=== PATIENT | female | born 1935 | race Asian ===

== ENCOUNTER 2022-03-01 14:14 | Inpatient (IN) | payer OTHER ==
[2022-03-01 15:34] LABS: BASO % 0.2 % (0-2.0); HEMOGLOBIN 10.1 GM/dL (10.7-15.3); LYMPH % 5.7 % (8-40); MCH 33.3 pg (25.7-33.7); MCHC 31.7 g/dl (32.0-36.0); MEAN PLT VOLUME 7.8 fl (7.5-11.1); MONO % 4.2 % (3.8-10.2); NEUT % 89.9 % (42.8-82.8); PLATELET COUNT 315 10^3/uL (134-434); RBC 3.04 M/mm3 (3.60-5.2); RDW 16.1 % (11.6-15.6); WHITE BLOOD COUNT 13.3 K/mm3 (4.0-10.0)
[2022-03-01 15:41] LABS: INR 1.28 (0.83-1.09); PROTHROMBIN TIME (PATIENT) 14.7 SEC (9.7-13.0)
[2022-03-01 15:44] LABS: ACTIVATED PTT 29.4 SECONDS (25.2-36.5)
[2022-03-01 15:59] LABS: CHLORIDE 86 mmol/L (98-107); SODIUM 122 mmol/L (136-145)
[2022-03-01 16:01] LABS: CALCIUM 8.7 mg/dL (8.5-10.1)
[2022-03-01 16:02] LABS: ALBUMIN 3.1 g/dl (3.4-5.0); BLOOD UREA NITROGEN 79.4 mg/dL (7-18); CO2 15 mmol/L (21-32)
[2022-03-01 16:05] LABS: CREATININE 4.2 mg/dL (0.55-1.3); SGOT/AST 232 U/L (15-37); SGPT/ALT 159 U/L (13-61)
[2022-03-01 16:06] LABS: BILIRUBIN,TOTAL 0.5 mg/dL (0.2-1); TOT PROT 7.6 g/dl (6.4-8.2)
[2022-03-01 16:08] LABS: ALK PHOS 107 U/L (45-117)
[2022-03-01 16:14] LABS: ANISOCYTOSIS 2+; MACROCYTOSIS 1+
[2022-03-01 16:22] LABS: VENOUS BASE EXCESS -11.9 mmol/L (-2-2); VENOUS O2 SATURATION 57.6 % (70-80); VENOUS PCO2 30.8 mmHg (38-52); VENOUS PH 7.268 (7.310-7.410)
[2022-03-01 16:34] LABS: INR 1.27 (0.83-1.09); PROTHROMBIN TIME (PATIENT) 14.6 SEC (9.7-13.0)
[2022-03-01 16:36] LABS: ACTIVATED PTT 29.1 SECONDS (25.2-36.5)
[2022-03-01 16:36] LABS: ANION GAP 22 MMOL/L (8-16); GLUCOSE,RANDOM 970 mg/dL (74-106); N-TERMINAL BNP 59160.3 pg/ml (5-450)
[2022-03-01] MEDS ORDERED: INSULIN REGULAR 100 UNITS in SODIUM CHLORIDE 99 ML IVPB SCH ×2 (16:45→17:30)
[2022-03-01] MEDS ORDERED: VANCOMYCIN 1 GM in D5W (PRE-DOCKED) 1,000 MG/250 ML IVPB ONE (16:49)
[2022-03-01] MEDS ORDERED: CEFEPIME HCL/D5W 2 GM/50 ML BAG IVPB ONE (16:50)
[2022-03-01] MEDS ORDERED: CALCIUM GLUCONATE 10% - 1,000 MG/10 ML VIAL IVPUSH ONE (16:51)
[2022-03-01] MEDS ORDERED: ACETAMINOPHEN INJECTION 100 ML IVPB ONE (16:58)
[2022-03-01] MEDS ORDERED: THIAMINE HCL 200 MG/2 ML VIAL IVPB ONE (17:08)
[2022-03-01] MEDS ORDERED: SODIUM CHLORIDE 0.9% 500 ML INFUS.BAG IV ONE (17:21)
[2022-03-01] MEDS ORDERED: ACETAMINOPHEN 1000 MG/100 ML BAG IVPB ONE (17:23)
[2022-03-01] MEDS ORDERED: VANCOMYCIN 1 GRAM (PRE-DOCKED) 1,000 MG/250 ML BAG IVPB ONE (17:24)
[2022-03-01] MEDS ORDERED: CALCIUM GLUCONATE 10% - 1,000 MG/10 ML VIAL ONE (17:24)
[2022-03-01] MEDS ORDERED: THIAMINE HCL 200 MG/2 ML VIAL ONE (17:24)
[2022-03-01] MEDS ORDERED: CEFEPIME 2 GM/100 ML BAG IVPB ONE (17:25)
[2022-03-01] MEDS ORDERED: SODIUM CHLORIDE 1,000 ML IV SCH (18:00)
[2022-03-01 18:20] LABS: EPI CELLS >36 /uL (0-25.1); HYALINE CASTS 5 /uL (0-3.1); URINE APPEARANCE CLOUDY; URINE BACTERIA 23 /uL (0-1359); URINE BILIRUBIN NEGATIVE (NEGATIVE); URINE COLOR YELLOW; URINE GLUCOSE (UA) 3+ (NEGATIVE); URINE KETONE NEGATIVE (NEGATIVE); URINE LEUK ESTERASE NEGATIVE (NEGATIVE); URINE NITRITE NEGATIVE (NEGATIVE); URINE PROTEIN 3+ (NEGATIVE); URINE RBC 11 /uL (0-23.9); URINE UROBILINOGEN 0.2 mg/dL (0.2-1.0)
[2022-03-01 19:19] LABS: URINE WBC 184 /uL (0-25.8)
[2022-03-01] MEDS ORDERED: LORazepam 2 MG/ML SDV VIAL IVPUSH ONE (19:37)
[2022-03-01 19:45] LABS: CHLORIDE 91 mmol/L (98-107); SODIUM 126 mmol/L (136-145)
[2022-03-01 19:47] LABS: ALBUMIN 2.9 g/dl (3.4-5.0); ANION GAP 17 MMOL/L (8-16); BLOOD UREA NITROGEN 77.7 mg/dL (7-18); CALCIUM 9.8 mg/dL (8.5-10.1); CO2 17 mmol/L (21-32)
[2022-03-01 19:50] LABS: PHOSPHOROUS 7.3 mg/dL (2.5-4.9); SGOT/AST 287 U/L (15-37); SGPT/ALT 216 U/L (13-61)
[2022-03-01 19:51] LABS: CREATININE 3.8 mg/dL (0.55-1.3)
[2022-03-01 19:52] LABS: BILIRUBIN,TOTAL 0.4 mg/dL (0.2-1); TOT PROT 7.1 g/dl (6.4-8.2)
[2022-03-01 19:53] LABS: ALK PHOS 102 U/L (45-117)
[2022-03-01 19:59] LABS: GLUCOSE,RANDOM 809 mg/dL (74-106); LACTIC ACID 3.9 mmol/L (0.4-2.0)
[2022-03-01] MEDS ORDERED: PNEUMOC 20-VAL CONJ-DIP CRM/PF 0.5 ML SYRINGE IM ONE (20:55)
[2022-03-01] MEDS: CHLORHEXIDINE GLUCONATE 4% CLEANSER FOR DECOLONIZATION TP SCH (21:43)
[2022-03-01] MEDS: HEPARIN NA (PORCINE) 5,000 UNITS/ML 1ML VIAL SQ SCH (21:43)
[2022-03-01] MEDS: MUPIROCIN 2% TOPICAL OINTMENT FOR DECOLONIZATION NS SCH (21:43)
[2022-03-01 22:13] LABS: CHLORIDE 94 mmol/L (98-107); SODIUM 127 mmol/L (136-145)
[2022-03-01 22:15] LABS: CALCIUM 9.5 mg/dL (8.5-10.1)
[2022-03-01 22:16] LABS: ANION GAP 15 MMOL/L (8-16); BLOOD UREA NITROGEN 79.3 mg/dL (7-18); CO2 18 mmol/L (21-32); MAGNESIUM 2.9 mg/dL (1.8-2.4)
[2022-03-01 22:19] LABS: CREATININE 3.8 mg/dL (0.55-1.3); PHOSPHOROUS 6.9 mg/dL (2.5-4.9); SGOT/AST 313 U/L (15-37); SGPT/ALT 245 U/L (13-61)
[2022-03-01 22:20] LABS: BILIRUBIN,TOTAL 0.4 mg/dL (0.2-1); TOT PROT 7.1 g/dl (6.4-8.2)
[2022-03-01 22:21] LABS: ALK PHOS 102 U/L (45-117)
[2022-03-01 22:35] LABS: GLUCOSE,RANDOM 634 mg/dL (74-106)
[2022-03-02 00:55] LABS: MAGNESIUM 2.8 mg/dL (1.8-2.4)
[2022-03-02] MEDS: DEXTROSE 5%-NORMAL SALINE 1,000 ML IV SCH ×2 (00:55→11:16)
[2022-03-02 00:59] LABS: PHOSPHOROUS 5.7 mg/dL (2.5-4.9)
[2022-03-02 01:00] LABS: LACTIC ACID 2.8 mmol/L (0.4-2.0)
[2022-03-02 01:51] LABS: CALCIUM 9.3 mg/dL (8.5-10.1)
[2022-03-02 01:52] LABS: ALBUMIN 2.8 g/dl (3.4-5.0); BLOOD UREA NITROGEN 77.4 mg/dL (7-18)
[2022-03-02 01:55] LABS: CREATININE 3.5 mg/dL (0.55-1.3)
[2022-03-02 01:56] LABS: TOT PROT 6.5 g/dl (6.4-8.2)
[2022-03-02 02:00] LABS: BILIRUBIN,TOTAL 0.8 mg/dL (0.2-1)
[2022-03-02] MEDS: INSULIN (LEVEMIR) 100 UNITS/ML UNITS SQ SCH ×3 (02:06→21:25)
[2022-03-02] MEDS: HEPARIN NA (PORCINE) 5,000 UNITS/ML 1ML VIAL SQ SCH ×3 (06:09→21:25)
[2022-03-02] MEDS: INSULIN SLIDING SCALE (NOVOLOG) 1 VIAL SQ SCH ×4 (06:09→21:27)
[2022-03-02 06:47] LABS: HEMATOCRIT 28.8 % (32.4-45.2); HEMOGLOBIN 9.7 GM/dL (10.7-15.3); MCH 33.6 pg (25.7-33.7); MCHC 33.5 g/dl (32.0-36.0); MEAN CELL VOLUME 100.2 fl (80-96); MEAN PLT VOLUME 7.5 fl (7.5-11.1); PLATELET COUNT 295 10^3/uL (134-434); RBC 2.87 M/mm3 (3.60-5.2); RDW 15.9 % (11.6-15.6); WHITE BLOOD COUNT 18.9 K/mm3 (4.0-10.0)
[2022-03-02 07:08] LABS: ALBUMIN 2.5 g/dl (3.4-5.0); BLOOD UREA NITROGEN 72.2 mg/dL (7-18); CALCIUM 8.7 mg/dL (8.5-10.1); MAGNESIUM 2.8 mg/dL (1.8-2.4)
[2022-03-02 07:11] LABS: CREATININE 3.1 mg/dL (0.55-1.3); PHOSPHOROUS 5.2 mg/dL (2.5-4.9)
[2022-03-02 07:13] LABS: BILIRUBIN,TOTAL 0.6 mg/dL (0.2-1); TOT PROT 6.2 g/dl (6.4-8.2)
[2022-03-02] MEDS ORDERED: DEXTROSE 5%-WATER - 50 ML IVPB ONE (09:51)
[2022-03-02] MEDS ORDERED: CEFEPIME HCL 1 GM VIAL (RESTRICTED TO ID) ONE (09:51)
[2022-03-02] MEDS: MUPIROCIN 2% TOPICAL OINTMENT FOR DECOLONIZATION NS SCH ×2 (09:55→21:25)
[2022-03-02] MEDS ORDERED: CEFEPIME HCL/D5W 1 GM/50 ML BAG IVPB SCH (10:00)
[2022-03-02] MEDS ORDERED: CEFEPIME 1 GM in DEXTROSE 5%-WATER - 50 ML IVPB ONE (10:00)
[2022-03-02] MEDS ORDERED: SODIUM CHLORIDE 1,000 ML IV SCH (11:15)
[2022-03-02] MEDS ORDERED: ACETAMINOPHEN 1000 MG/100 ML BAG IVPB ONE (16:14)
[2022-03-02] MEDS: SODIUM CHLORIDE 0.45% 1,000 ML IV SCH (17:04)
[2022-03-02] MEDS: LIDOCAINE 5% TOPICAL PATCH TP SCH (17:04)
[2022-03-02] MEDS ORDERED: morphine CARPU-JECT 2 MG/1 ML DISP.SYRIN IVPUSH ONE (20:18)
[2022-03-02 20:50] LABS: CALCIUM 8.3 mg/dL (8.5-10.1)
[2022-03-02 20:51] LABS: BLOOD UREA NITROGEN 67.2 mg/dL (7-18)
[2022-03-02 20:54] LABS: CREATININE 2.9 mg/dL (0.55-1.3)
[2022-03-02] MEDS ORDERED: morphine CARPU-JECT 4 MG/1 ML DISP.SYRIN IVPUSH ONE (21:11)
[2022-03-02] MEDS: CHLORHEXIDINE GLUCONATE 4% CLEANSER FOR DECOLONIZATION TP SCH (21:25)
[2022-03-02] MEDS ORDERED: LIDOCAINE PATCH REMOVAL MC SCH (22:00)
[2022-03-03] MEDS: HEPARIN NA (PORCINE) 5,000 UNITS/ML 1ML VIAL SQ SCH ×2 (06:06→22:37)
[2022-03-03] MEDS: INSULIN SLIDING SCALE (NOVOLOG) 1 VIAL SQ SCH ×3 (06:37→22:15)
[2022-03-03] MEDS ORDERED: LORazepam 2 MG/ML SDV VIAL IVPUSH ONE (09:15)
[2022-03-03 09:30] LABS: ARTERIAL BLD GAS O2 SATURATION 98.2 % (95-98); ARTERIAL BLOOD GAS BASE EXCESS -9.7 mmol/L (-2-2); ARTERIAL BLOOD GAS PO2 119.5 mmHg (80-100); ARTERIAL BLOOD GAS pH 7.331 (7.350-7.450)
[2022-03-03 09:33] LABS: ALLENS TEST POSITIVE; VENT MODE S/T; VENT RATE 12
[2022-03-03] MEDS ORDERED: MUPIROCIN 2% TOPICAL OINTMENT FOR DECOLONIZATION NS SCH (10:00)
[2022-03-03] MEDS ORDERED: ASPIRIN 81 MG CHEWABLE TABLETS PO SCH (10:00)
[2022-03-03] MEDS ORDERED: CEFEPIME HCL/D5W 1 GM/50 ML BAG IVPB SCH (10:00)
[2022-03-03] MEDS ORDERED: INSULIN (LEVEMIR) 100 UNITS/ML UNITS SQ SCH (10:00)
[2022-03-03] MEDS ORDERED: methylPREDNISolone NA SUCC 125 MG/2 ML VIAL IVPUSH ONE (10:00)
[2022-03-03 10:50] LABS: HEMATOCRIT 31.3 % (32.4-45.2); HEMOGLOBIN 10.2 GM/dL (10.7-15.3); MCH 33.1 pg (25.7-33.7); MCHC 32.6 g/dl (32.0-36.0); MEAN CELL VOLUME 101.5 fl (80-96); PLATELET COUNT 333 10^3/uL (134-434); RBC 3.08 M/mm3 (3.60-5.2); RDW 16.2 % (11.6-15.6); WHITE BLOOD COUNT 17.6 K/mm3 (4.0-10.0)
[2022-03-03 10:51] LABS: MEAN PLT VOLUME 7.7 fl (7.5-11.1)
[2022-03-03] MEDS ORDERED: INSULIN SLIDING SCALE (NOVOLOG) 1 VIAL SQ SCH (11:00)
[2022-03-03 11:08] LABS: CALCIUM 8.1 mg/dL (8.5-10.1); MAGNESIUM 2.5 mg/dL (1.8-2.4)
[2022-03-03 11:09] LABS: ALBUMIN 2.8 g/dl (3.4-5.0); BLOOD UREA NITROGEN 63.9 mg/dL (7-18)
[2022-03-03 11:12] LABS: BILIRUBIN,TOTAL 0.4 mg/dL (0.2-1); CREATININE 2.9 mg/dL (0.55-1.3)
[2022-03-03 11:13] LABS: TOT PROT 6.9 g/dl (6.4-8.2)
[2022-03-03] MEDS: SODIUM CHLORIDE 0.45% 1,000 ML IV SCH (11:46)
[2022-03-03] MEDS: LIDOCAINE 5% TOPICAL PATCH TP SCH (12:02)
[2022-03-03] MEDS ORDERED: ALBUTEROL SO4 2.5/IPRATROPIUM 0.5 INH SOL 3 ML VIAL.NEB. NEB ONE (13:00)
[2022-03-03 13:27] LABS: ARTERIAL BLD GAS O2 SATURATION 95.8 % (95-98); ARTERIAL BLOOD GAS BASE EXCESS -14.6 mmol/L (-2-2); ARTERIAL BLOOD GAS PO2 92.6 mmHg (80-100); ARTERIAL BLOOD GAS pH 7.229 (7.350-7.450)
[2022-03-03 13:29] LABS: ALLENS TEST POSITIVE
[2022-03-03] MEDS ORDERED: HEPARIN NA (PORCINE) 5,000 UNITS/ML 1ML VIAL SQ SCH (14:00)
[2022-03-03] MEDS ORDERED: SODIUM BICARBONATE 8.4% 50 MEQ/50 ML VIAL IV ONE (14:34)
[2022-03-03] MEDS ORDERED: SODIUM CHLORIDE 0.45% 1,000 ML IV SCH (14:45)
[2022-03-03] MEDS ORDERED: SODIUM BICARBONATE 8.4% 50 MEQ/50 ML DISP.SYRIN IV ONE (15:00)
[2022-03-03] MEDS: DEXMEDETOMIDINE IN 0.9 % NACL 400 MCG/100 ML VIAL IVPB SCH (15:50)
[2022-03-03] MEDS ORDERED: SODIUM CHLORIDE 0.45% 1,000 ML with SODIUM BICARBONATE 8.4% - 150 MEQ IV SCH (16:00)
[2022-03-03] MEDS ORDERED: SODIUM BICARBONATE 8.4% - 75 MEQ in SODIUM CHLORIDE 0.45% 1,000 ML IV ONE (16:08)
[2022-03-03 16:40] LABS: LACTIC ACID 7.4 mmol/L (0.4-2.0)
[2022-03-03] MEDS ORDERED: dilTIAZem HCL 50 MG/10 ML - 10 ML VIAL IVPUSH ONE (16:53)
[2022-03-03] MEDS ORDERED: dilTIAZem HCL 125 MG/25 ML - 25 ML VIAL ONE (16:56)
[2022-03-03] MEDS ORDERED: SODIUM BICARBONATE 8.4% 50 MEQ/50 ML DISP.SYRIN IVPUSH ONE (17:13)
[2022-03-03] MEDS ORDERED: SODIUM CHLORIDE 0.45% 1,000 ML IV ONE (17:14)
[2022-03-03] MEDS ORDERED: FUROSEMIDE 40 MG/4 ML INJECTABLE VIAL IVPUSH ONE ×2 (18:36→21:53)
[2022-03-03] MEDS ORDERED: CHLORHEXIDINE GLUCONATE 4% CLEANSER FOR DECOLONIZATION TP SCH (22:00)
[2022-03-03] MEDS: INSULIN (LEVEMIR) 100 UNITS/ML UNITS SQ SCH (22:15)
[2022-03-03] MEDS: MUPIROCIN 2% TOPICAL OINTMENT FOR DECOLONIZATION NS SCH (22:36)
[2022-03-03] MEDS: dilTIAZem HCL 50 MG/10 ML - 10 ML VIAL IVPUSH PRN (22:37)
[2022-03-03] MEDS: LIDOCAINE PATCH REMOVAL MC SCH (22:37)
[2022-03-03] MEDS: CHLORHEXIDINE GLUCONATE 4% CLEANSER FOR DECOLONIZATION TP SCH (22:37)
[2022-03-04 07:04] LABS: HEMATOCRIT 30.5 % (32.4-45.2); HEMOGLOBIN 10.3 GM/dL (10.7-15.3); MCH 33.6 pg (25.7-33.7); MCHC 33.7 g/dl (32.0-36.0); MEAN CELL VOLUME 99.5 fl (80-96); MEAN PLT VOLUME 7.7 fl (7.5-11.1); PLATELET COUNT 270 10^3/uL (134-434); RBC 3.07 M/mm3 (3.60-5.2); RDW 16.1 % (11.6-15.6); WHITE BLOOD COUNT 15.3 K/mm3 (4.0-10.0)
[2022-03-04] MEDS: HEPARIN NA (PORCINE) 5,000 UNITS/ML 1ML VIAL SQ SCH ×3 (07:12→21:58)
[2022-03-04] MEDS: INSULIN SLIDING SCALE (NOVOLOG) 1 VIAL SQ SCH ×4 (07:13→21:59)
[2022-03-04] MEDS: INSULIN (LEVEMIR) 100 UNITS/ML UNITS SQ SCH ×2 (07:13→21:58)
[2022-03-04 07:24] LABS: ALBUMIN 2.5 g/dl (3.4-5.0); BLOOD UREA NITROGEN 73.2 mg/dL (7-18); CALCIUM 7.6 mg/dL (8.5-10.1); MAGNESIUM 2.5 mg/dL (1.8-2.4)
[2022-03-04 07:27] LABS: CREATININE 2.7 mg/dL (0.55-1.3); PHOSPHOROUS 5.1 mg/dL (2.5-4.9)
[2022-03-04 07:29] LABS: BILIRUBIN,TOTAL 0.4 mg/dL (0.2-1); TOT PROT 6.3 g/dl (6.4-8.2)
[2022-03-04 10:24] LABS: ANISOCYTOSIS 0; HELMET CELLS 0; HOWELL-JOLLY BODIES 0; MACROCYTOSIS 0; OVALOCYTE 0; ROULEAU 0; SICKELED CELLS 0; TARGET CELLS 0; TEAR DROP CELLS 0; TOXIC GRANULATION 0
[2022-03-04] MEDS: DEXTROSE 5%-0.45% SALINE 1,000 ML IV SCH (10:30)
[2022-03-04] MEDS: LIDOCAINE 5% TOPICAL PATCH TP SCH (10:33)
[2022-03-04] MEDS: MUPIROCIN 2% TOPICAL OINTMENT FOR DECOLONIZATION NS SCH ×2 (10:33→21:57)
[2022-03-04] MEDS: dilTIAZem HCL 50 MG/10 ML - 10 ML VIAL IVPUSH PRN ×3 (10:37→21:57)
[2022-03-04] MEDS: ASPIRIN 81 MG CHEWABLE TABLETS PO SCH (11:48)
[2022-03-04] MEDS: DEXMEDETOMIDINE IN 0.9 % NACL 400 MCG/100 ML VIAL IVPB SCH ×2 (13:11→17:02)
[2022-03-04] MEDS: CHLORHEXIDINE GLUCONATE 4% CLEANSER FOR DECOLONIZATION TP SCH (21:58)
[2022-03-04] MEDS: LIDOCAINE PATCH REMOVAL MC SCH (21:58)
[2022-03-05] MEDS: HEPARIN NA (PORCINE) 5,000 UNITS/ML 1ML VIAL SQ SCH ×3 (06:14→22:32)
[2022-03-05] MEDS: dilTIAZem HCL 50 MG/10 ML - 10 ML VIAL IVPUSH PRN ×2 (06:17→10:17)
[2022-03-05] MEDS: INSULIN SLIDING SCALE (NOVOLOG) 1 VIAL SQ SCH ×4 (07:04→22:33)
[2022-03-05] MEDS: INSULIN (LEVEMIR) 100 UNITS/ML UNITS SQ SCH ×2 (07:04→22:33)
[2022-03-05 07:11] LABS: HEMATOCRIT 32.3 % (32.4-45.2); HEMOGLOBIN 10.3 GM/dL (10.7-15.3); MCH 32.9 pg (25.7-33.7); MCHC 31.9 g/dl (32.0-36.0); MEAN CELL VOLUME 103.1 fl (80-96); MEAN PLT VOLUME 8.2 fl (7.5-11.1); PLATELET COUNT 278 10^3/uL (134-434); RBC 3.14 M/mm3 (3.60-5.2); RDW 16.5 % (11.6-15.6); WHITE BLOOD COUNT 16.1 K/mm3 (4.0-10.0)
[2022-03-05 07:55] LABS: ALBUMIN 2.4 g/dl (3.4-5.0); BILIRUBIN,TOTAL 0.4 mg/dL (0.2-1); BLOOD UREA NITROGEN 75.2 mg/dL (7-18); CALCIUM 7.8 mg/dL (8.5-10.1); CREATININE 2.6 mg/dL (0.55-1.3); PHOSPHOROUS 5.6 mg/dL (2.5-4.9); TOT PROT 6.2 g/dl (6.4-8.2)
[2022-03-05 10:10] LABS: ANISOCYTOSIS 2+; MACROCYTOSIS 2+
[2022-03-05] MEDS: ASPIRIN 81 MG CHEWABLE TABLETS PO SCH (10:13)
[2022-03-05] MEDS: SODIUM CHLORIDE 0.45% 1,000 ML IV SCH (10:15)
[2022-03-05] MEDS: LIDOCAINE 5% TOPICAL PATCH TP SCH (10:19)
[2022-03-05] MEDS: MUPIROCIN 2% TOPICAL OINTMENT FOR DECOLONIZATION NS SCH ×2 (10:19→22:32)
[2022-03-05 10:34] LABS: NEUT % 14.5 % (42.8-82.8)
[2022-03-05] MEDS ORDERED: PIPERACILLIN/TAZOBACTAM 2.25 GM VIAL IVPB ONE ×3 (14:08→20:34)
[2022-03-05] MEDS ORDERED: DEXTROSE 5%-WATER - 50 ML IVPB ONE ×3 (14:08→20:34)
[2022-03-05] MEDS: PIPERACILLIN/TAZOB 2.25 GM 2.25 GM in DEXTROSE 5%-WATER - 50 ML IVPB SCH ×2 (14:20→17:21)
[2022-03-05] MEDS: ARTIFICIAL TEARS (POLYVINYL ALCOHOL) OPTH DROPS OU SCH (22:32)
[2022-03-05] MEDS: CHLORHEXIDINE GLUCONATE 4% CLEANSER FOR DECOLONIZATION TP SCH (22:32)
[2022-03-05] MEDS: LIDOCAINE PATCH REMOVAL MC SCH (22:33)
[2022-03-06] MEDS: PIPERACILLIN/TAZOB 2.25 GM 2.25 GM in DEXTROSE 5%-WATER - 50 ML IVPB SCH ×3 (03:29→17:34)
[2022-03-06] MEDS: DEXMEDETOMIDINE IN 0.9 % NACL 400 MCG/100 ML VIAL IVPB SCH ×2 (03:29→10:33)
[2022-03-06] MEDS: ARTIFICIAL TEARS (POLYVINYL ALCOHOL) OPTH DROPS OU SCH ×3 (06:22→21:18)
[2022-03-06] MEDS: INSULIN (LEVEMIR) 100 UNITS/ML UNITS SQ SCH ×2 (06:22→21:24)
[2022-03-06] MEDS: HEPARIN NA (PORCINE) 5,000 UNITS/ML 1ML VIAL SQ SCH ×3 (06:22→21:17)
[2022-03-06] MEDS: INSULIN SLIDING SCALE (NOVOLOG) 1 VIAL SQ SCH ×4 (06:23→21:24)
[2022-03-06] MEDS ORDERED: dilTIAZem HCL 25 MG/5 ML - 5 ML VIAL ONE (06:50)
[2022-03-06] MEDS: dilTIAZem HCL 50 MG/10 ML - 10 ML VIAL IVPUSH PRN (07:12)
[2022-03-06] MEDS ORDERED: PIPERACILLIN/TAZOBACTAM 2.25 GM VIAL IVPB ONE ×2 (07:56→17:05)
[2022-03-06] MEDS ORDERED: DEXTROSE 5%-WATER - 50 ML IVPB ONE ×2 (07:56→17:05)
[2022-03-06] MEDS: ASPIRIN 81 MG CHEWABLE TABLETS PO SCH (09:01)
[2022-03-06] MEDS: LIDOCAINE 5% TOPICAL PATCH TP SCH (09:01)
[2022-03-06] MEDS: MUPIROCIN 2% TOPICAL OINTMENT FOR DECOLONIZATION NS SCH ×2 (09:02→21:18)
[2022-03-06 10:33] LABS: HEMATOCRIT 33.9 % (32.4-45.2); HEMOGLOBIN 10.9 GM/dL (10.7-15.3); MCHC 32.1 g/dl (32.0-36.0); MEAN PLT VOLUME 7.6 fl (7.5-11.1); PLATELET COUNT 271 10^3/uL (134-434); RBC 3.29 M/mm3 (3.60-5.2); RDW 16.5 % (11.6-15.6); WHITE BLOOD COUNT 13.5 K/mm3 (4.0-10.0)
[2022-03-06] MEDS: SODIUM CHLORIDE 0.45% 1,000 ML IV SCH (10:33)
[2022-03-06 11:13] LABS: LACTIC ACID 2.1 mmol/L (0.4-2.0)
[2022-03-06] MEDS ORDERED: morphine CARPU-JECT 4 MG/1 ML DISP.SYRIN IVPUSH ONE (11:17)
[2022-03-06 13:02] LABS: CALCIUM 7.8 mg/dL (8.5-10.1)
[2022-03-06 13:04] LABS: BLOOD UREA NITROGEN 69.9 mg/dL (7-18); MAGNESIUM 2.8 mg/dL (1.8-2.4)
[2022-03-06 13:07] LABS: CREATININE 2.5 mg/dL (0.55-1.3); PHOSPHOROUS 3.9 mg/dL (2.5-4.9)
[2022-03-06] MEDS: KCL 10 MEQ IVPB 10 MEQ/100 ML INFUS.BAG IVPB SCH ×2 (15:20→16:22)
[2022-03-06 16:30] VITALS: BMI 20.5
[2022-03-06] MEDS ORDERED: LORazepam 2 MG/ML SDV VIAL IVPUSH ONE (17:35)
[2022-03-06 19:41] LABS: ARTERIAL BLD GAS O2 SATURATION 99.3 % (95-98); ARTERIAL BLOOD GAS BASE EXCESS 1.4 mmol/L (-2-2); ARTERIAL BLOOD GAS PO2 176.4 mmHg (80-100); ARTERIAL BLOOD GAS pH 7.478 (7.350-7.450)
[2022-03-06 19:49] LABS: ALLENS TEST POSITIVE
[2022-03-06 20:26] LABS: ALBUMIN 2.1 g/dl (3.4-5.0); BILIRUBIN,TOTAL 0.4 mg/dL (0.2-1); BLOOD UREA NITROGEN 64.4 mg/dL (7-18); CALCIUM 7.3 mg/dL (8.5-10.1); CREATININE 2.3 mg/dL (0.55-1.3); TOT PROT 5.8 g/dl (6.4-8.2)
[2022-03-06] MEDS: CHLORHEXIDINE GLUCONATE 4% CLEANSER FOR DECOLONIZATION TP SCH (21:18)
[2022-03-06] MEDS: LIDOCAINE PATCH REMOVAL MC SCH (21:18)
[2022-03-07] MEDS ORDERED: DEXTROSE 5%-WATER - 50 ML IVPB ONE ×3 (00:24→16:36)
[2022-03-07] MEDS ORDERED: PIPERACILLIN/TAZOBACTAM 2.25 GM VIAL IVPB ONE ×3 (00:24→16:36)
[2022-03-07] MEDS: PIPERACILLIN/TAZOB 2.25 GM 2.25 GM in DEXTROSE 5%-WATER - 50 ML IVPB SCH ×3 (01:43→17:20)
[2022-03-07] MEDS: SODIUM CHLORIDE IVPB SCH (04:34)
[2022-03-07] MEDS: DEXMEDETOMIDINE HCL IVPB SCH (04:34)
[2022-03-07] MEDS: HEPARIN NA (PORCINE) 5,000 UNITS/ML 1ML VIAL SQ SCH ×3 (05:08→21:44)
[2022-03-07] MEDS: ARTIFICIAL TEARS (POLYVINYL ALCOHOL) OPTH DROPS OU SCH ×3 (05:08→21:44)
[2022-03-07] MEDS: INSULIN (LEVEMIR) 100 UNITS/ML UNITS SQ SCH ×2 (06:19→21:46)
[2022-03-07] MEDS: INSULIN SLIDING SCALE (NOVOLOG) 1 VIAL SQ SCH ×4 (06:22→21:46)
[2022-03-07 07:27] LABS: BASO % 0.2 % (0-2.0); EOS % 0.8 % (0-4.5); HEMATOCRIT 34.8 % (32.4-45.2); LYMPH % 13.8 % (8-40); MCH 33.4 pg (25.7-33.7); MCHC 31.8 g/dl (32.0-36.0); MEAN PLT VOLUME 8.1 fl (7.5-11.1); MONO % 5.7 % (3.8-10.2); NEUT % 79.5 % (42.8-82.8); PLATELET COUNT 242 10^3/uL (134-434); RBC 3.31 M/mm3 (3.60-5.2); RDW 16.7 % (11.6-15.6); WHITE BLOOD COUNT 11.6 K/mm3 (4.0-10.0)
[2022-03-07] MEDS: DEXMEDETOMIDINE IN 0.9 % NACL 400 MCG/100 ML VIAL IVPB SCH (07:29)
[2022-03-07] MEDS: CEFEPIME HCL/D5W 1 GM/50 ML BAG IVPB SCH ×2 (07:31→07:34)
[2022-03-07] MEDS: DEXTROSE 5%-0.45% SALINE 1,000 ML IV SCH (07:34)
[2022-03-07 08:03] LABS: ALBUMIN 2.2 g/dl (3.4-5.0); CALCIUM 7.3 mg/dL (8.5-10.1)
[2022-03-07 08:04] LABS: BLOOD UREA NITROGEN 63.2 mg/dL (7-18); MAGNESIUM 2.7 mg/dL (1.8-2.4)
[2022-03-07 08:07] LABS: BILIRUBIN,TOTAL 0.4 mg/dL (0.2-1); CREATININE 2.3 mg/dL (0.55-1.3); PHOSPHOROUS 4.8 mg/dL (2.5-4.9); TOT PROT 5.8 g/dl (6.4-8.2)
[2022-03-07 09:32] LABS: ANISOCYTOSIS 1+; MACROCYTOSIS 1+
[2022-03-07] MEDS: LIDOCAINE 5% TOPICAL PATCH TP SCH (10:11)
[2022-03-07] MEDS: ASPIRIN 81 MG CHEWABLE TABLETS PO SCH (10:11)
[2022-03-07] MEDS: MUPIROCIN 2% TOPICAL OINTMENT FOR DECOLONIZATION NS SCH ×2 (10:11→21:44)
[2022-03-07] MEDS: SODIUM CHLORIDE 0.45% 1,000 ML IV SCH (10:12)
[2022-03-07] MEDS ORDERED: SODIUM CHLORIDE 0.45% 1,000 ML IV SCH (13:44)
[2022-03-07] MEDS ORDERED: AMINO ACIDS 4.25%/D5W 1,000 ML IV SCH (13:45)
[2022-03-07] MEDS ORDERED: cloNIDine-TTS 0.1 MG/24 HRS PATCH.TDWK TD SCH (17:44)
[2022-03-07] MEDS: CHLORHEXIDINE GLUCONATE 4% CLEANSER FOR DECOLONIZATION TP SCH (21:44)
[2022-03-07] MEDS: LIDOCAINE PATCH REMOVAL MC SCH (21:46)
[2022-03-07] MEDS ORDERED: VERAPAMIL HCL 120 MG TABLET PO SCH (22:00)
[2022-03-08] MEDS ORDERED: PIPERACILLIN/TAZOBACTAM 2.25 GM VIAL IVPB ONE ×3 (01:05→16:34)
[2022-03-08] MEDS ORDERED: DEXTROSE 5%-WATER - 50 ML IVPB ONE ×3 (01:05→16:34)
[2022-03-08] MEDS: PIPERACILLIN/TAZOB 2.25 GM 2.25 GM in DEXTROSE 5%-WATER - 50 ML IVPB SCH ×3 (01:21→17:15)
[2022-03-08] MEDS: SODIUM CHLORIDE IVPB SCH (06:08)
[2022-03-08] MEDS: DEXMEDETOMIDINE HCL IVPB SCH (06:08)
[2022-03-08] MEDS: INSULIN SLIDING SCALE (NOVOLOG) 1 VIAL SQ SCH ×4 (06:08→21:53)
[2022-03-08] MEDS: HEPARIN NA (PORCINE) 5,000 UNITS/ML 1ML VIAL SQ SCH ×3 (06:08→21:45)
[2022-03-08] MEDS: ARTIFICIAL TEARS (POLYVINYL ALCOHOL) OPTH DROPS OU SCH ×3 (06:09→22:58)
[2022-03-08] MEDS: INSULIN (LEVEMIR) 100 UNITS/ML UNITS SQ SCH ×2 (06:09→21:50)
[2022-03-08 08:25] LABS: BASO % 0.3 % (0-2.0); EOS % 0.6 % (0-4.5); LYMPH % 7.8 % (8-40); MCHC 31.3 g/dl (32.0-36.0); MEAN CELL VOLUME 105.5 fl (80-96); MEAN PLT VOLUME 7.9 fl (7.5-11.1); MONO % 6.4 % (3.8-10.2); NEUT % 84.9 % (42.8-82.8); PLATELET COUNT 267 10^3/uL (134-434); RBC 3.32 M/mm3 (3.60-5.2); RDW 17.1 % (11.6-15.6); WHITE BLOOD COUNT 13.3 K/mm3 (4.0-10.0)
[2022-03-08 08:34] LABS: CALCIUM 7.5 mg/dL (8.5-10.1)
[2022-03-08 08:35] LABS: ALBUMIN 2.4 g/dl (3.4-5.0); MAGNESIUM 2.9 mg/dL (1.8-2.4)
[2022-03-08 08:38] LABS: PHOSPHOROUS 4.8 mg/dL (2.5-4.9)
[2022-03-08 08:39] LABS: BILIRUBIN,TOTAL 0.4 mg/dL (0.2-1); TOT PROT 6.1 g/dl (6.4-8.2)
[2022-03-08] MEDS: ASPIRIN 81 MG CHEWABLE TABLETS NGT SCH (09:12)
[2022-03-08] MEDS: MUPIROCIN 2% TOPICAL OINTMENT FOR DECOLONIZATION NS SCH (09:12)
[2022-03-08] MEDS: LIDOCAINE 5% TOPICAL PATCH TP SCH (09:13)
[2022-03-08] MEDS: THIAMINE HCL 200 MG/2 ML VIAL IVPB SCH (09:14)
[2022-03-08] MEDS: METOPROLOL TARTRATE 5 MG/5 ML VIAL IVPUSH SCH ×4 (09:33→21:45)
[2022-03-08] MEDS ORDERED: THIAMINE HCL 100 MG TABLET (FP) PO SCH (10:00)
[2022-03-08] MEDS: VERAPAMIL HCL 120 MG TABLET NGT SCH ×2 (10:33→22:59)
[2022-03-08] MEDS: LEVOTHYROXINE SODIUM 100 MCG VIAL IVPUSH SCH (10:33)
[2022-03-08] MEDS: ALPRAZolam 0.25 MG TABLET PO PRN (16:00)
[2022-03-08] MEDS ORDERED: MELATONIN 5 MG TABLETS PO PRN (16:27)
[2022-03-08] MEDS: FOLIC ACID 1 MG TABLET (FP) NGT SCH (16:37)
[2022-03-08] MEDS: CHLORHEXIDINE GLUCONATE 4% CLEANSER FOR DECOLONIZATION TP SCH (21:49)
[2022-03-08] MEDS: LIDOCAINE PATCH REMOVAL MC SCH (22:59)
[2022-03-08] MEDS: ATORVASTATIN CA 20 MG TABLET (FP) NGT SCH (22:59)
[2022-03-09] MEDS ORDERED: PIPERACILLIN/TAZOBACTAM 2.25 GM VIAL IVPB ONE ×2 (00:48→09:33)
[2022-03-09] MEDS: METOPROLOL TARTRATE 5 MG/5 ML VIAL IVPUSH SCH ×7 (00:50→21:30)
[2022-03-09] MEDS: PIPERACILLIN/TAZOB 2.25 GM 2.25 GM in DEXTROSE 5%-WATER - 50 ML IVPB SCH ×2 (02:30→10:25)
[2022-03-09] MEDS: ARTIFICIAL TEARS (POLYVINYL ALCOHOL) OPTH DROPS OU SCH ×3 (06:28→22:41)
[2022-03-09] MEDS: INSULIN (LEVEMIR) 100 UNITS/ML UNITS SQ SCH ×2 (06:28→22:52)
[2022-03-09] MEDS: HEPARIN NA (PORCINE) 5,000 UNITS/ML 1ML VIAL SQ SCH ×3 (06:28→22:52)
[2022-03-09] MEDS: INSULIN SLIDING SCALE (NOVOLOG) 1 VIAL SQ SCH ×4 (06:29→22:55)
[2022-03-09 07:59] LABS: BASO % 0.3 % (0-2.0); HEMOGLOBIN 10.6 GM/dL (10.7-15.3); MCH 33.7 pg (25.7-33.7); MCHC 32.1 g/dl (32.0-36.0); MEAN CELL VOLUME 104.8 fl (80-96); MEAN PLT VOLUME 8.3 fl (7.5-11.1); MONO % 4.1 % (3.8-10.2); NEUT % 90.6 % (42.8-82.8); PLATELET COUNT 240 10^3/uL (134-434); RBC 3.14 M/mm3 (3.60-5.2); RDW 17.2 % (11.6-15.6); WHITE BLOOD COUNT 17.9 K/mm3 (4.0-10.0)
[2022-03-09 08:45] LABS: CALCIUM 7.7 mg/dL (8.5-10.1)
[2022-03-09 08:46] LABS: ALBUMIN 2.2 g/dl (3.4-5.0); BLOOD UREA NITROGEN 69.2 mg/dL (7-18); MAGNESIUM 2.7 mg/dL (1.8-2.4)
[2022-03-09 08:49] LABS: CREATININE 2.6 mg/dL (0.55-1.3); PHOSPHOROUS 3.7 mg/dL (2.5-4.9)
[2022-03-09 08:50] LABS: BILIRUBIN,TOTAL 0.5 mg/dL (0.2-1); TOT PROT 5.7 g/dl (6.4-8.2)
[2022-03-09] MEDS ORDERED: DEXTROSE 5%-WATER - 50 ML IVPB ONE (09:33)
[2022-03-09] MEDS ORDERED: SODIUM CHLORIDE 0.45% 1,000 ML IV SCH (09:45)
[2022-03-09] MEDS: ALPRAZolam 0.25 MG TABLET PO PRN (10:17)
[2022-03-09] MEDS: FOLIC ACID 1 MG TABLET (FP) NGT SCH (10:18)
[2022-03-09] MEDS: amLODIPine BESYLATE 10 MG TABLET (FP) PO SCH (10:18)
[2022-03-09] MEDS: ASPIRIN 81 MG CHEWABLE TABLETS NGT SCH (10:18)
[2022-03-09] MEDS: VERAPAMIL HCL 120 MG TABLET NGT SCH ×2 (10:26→22:53)
[2022-03-09] MEDS: LIDOCAINE 5% TOPICAL PATCH TP SCH (10:27)
[2022-03-09] MEDS: LEVOTHYROXINE SODIUM 100 MCG VIAL IVPUSH SCH (10:32)
[2022-03-09] MEDS: THIAMINE HCL 200 MG/2 ML VIAL IVPB SCH (10:35)
[2022-03-09] MEDS: ALPRAZolam 0.25 MG TABLET PO SCH ×2 (10:36→22:53)
[2022-03-09] MEDS ORDERED: POTASSIUM CHLORIDE ORAL LIQUID 20 MEQ/15 ML PO ONE (11:30)
[2022-03-09] MEDS ORDERED: ALPRAZolam 0.25 MG TABLET PO PRN (17:56)
[2022-03-09] MEDS: CHLORHEXIDINE GLUCONATE 4% CLEANSER FOR DECOLONIZATION TP SCH (22:52)
[2022-03-09] MEDS: LIDOCAINE PATCH REMOVAL MC SCH (22:53)
[2022-03-09] MEDS: ATORVASTATIN CA 20 MG TABLET (FP) NGT SCH (22:53)
[2022-03-10] MEDS: METOPROLOL TARTRATE 5 MG/5 ML VIAL IVPUSH SCH ×6 (01:09→20:53)
[2022-03-10] MEDS: ARTIFICIAL TEARS (POLYVINYL ALCOHOL) OPTH DROPS OU SCH ×3 (06:42→21:05)
[2022-03-10] MEDS: HEPARIN NA (PORCINE) 5,000 UNITS/ML 1ML VIAL SQ SCH ×3 (06:43→21:04)
[2022-03-10] MEDS: INSULIN (LEVEMIR) 100 UNITS/ML UNITS SQ SCH ×2 (06:43→21:05)
[2022-03-10] MEDS: INSULIN SLIDING SCALE (NOVOLOG) 1 VIAL SQ SCH ×4 (06:43→21:05)
[2022-03-10 07:11] LABS: MCH 33.4 pg (25.7-33.7); MCHC 31.2 g/dl (32.0-36.0); MEAN CELL VOLUME 106.9 fl (80-96); MEAN PLT VOLUME 8.8 fl (7.5-11.1); PLATELET COUNT 211 10^3/uL (134-434); RBC 2.99 M/mm3 (3.60-5.2); RDW 17.5 % (11.6-15.6); WHITE BLOOD COUNT 15.4 K/mm3 (4.0-10.0)
[2022-03-10 07:27] LABS: CALCIUM 7.5 mg/dL (8.5-10.1)
[2022-03-10 07:28] LABS: ALBUMIN 1.8 g/dl (3.4-5.0); BLOOD UREA NITROGEN 75.8 mg/dL (7-18)
[2022-03-10 07:31] LABS: CREATININE 2.8 mg/dL (0.55-1.3)
[2022-03-10 07:33] LABS: BILIRUBIN,TOTAL 0.4 mg/dL (0.2-1); TOT PROT 5.1 g/dl (6.4-8.2)
[2022-03-10] MEDS: LEVOTHYROXINE SODIUM 100 MCG VIAL IVPUSH SCH (09:59)
[2022-03-10] MEDS: ALPRAZolam 0.25 MG TABLET PO SCH ×3 (10:03→21:07)
[2022-03-10] MEDS: ASPIRIN 81 MG CHEWABLE TABLETS NGT SCH (10:03)
[2022-03-10] MEDS: amLODIPine BESYLATE 10 MG TABLET (FP) PO SCH (10:03)
[2022-03-10] MEDS: FOLIC ACID 1 MG TABLET (FP) NGT SCH (10:03)
[2022-03-10] MEDS: VERAPAMIL HCL 120 MG TABLET NGT SCH ×2 (10:04→21:07)
[2022-03-10] MEDS: THIAMINE HCL 200 MG/2 ML VIAL IVPB SCH (10:06)
[2022-03-10] MEDS: LIDOCAINE 5% TOPICAL PATCH TP SCH (10:09)
[2022-03-10] MEDS ORDERED: SODIUM CHLORIDE 0.45% 1,000 ML IV SCH ×2 (14:30→16:10)
[2022-03-10] MEDS: ATORVASTATIN CA 20 MG TABLET (FP) NGT SCH (21:05)
[2022-03-10] MEDS: LIDOCAINE PATCH REMOVAL MC SCH (23:29)
[2022-03-11] MEDS: METOPROLOL TARTRATE 5 MG/5 ML VIAL IVPUSH SCH ×6 (03:13→22:21)
[2022-03-11] MEDS: HEPARIN NA (PORCINE) 5,000 UNITS/ML 1ML VIAL SQ SCH ×3 (05:59→22:24)
[2022-03-11] MEDS: ARTIFICIAL TEARS (POLYVINYL ALCOHOL) OPTH DROPS OU SCH ×3 (05:59→22:20)
[2022-03-11] MEDS: ALPRAZolam 0.25 MG TABLET PO SCH ×3 (05:59→22:24)
[2022-03-11] MEDS: INSULIN (LEVEMIR) 100 UNITS/ML UNITS SQ SCH ×2 (06:00→22:46)
[2022-03-11] MEDS: INSULIN SLIDING SCALE (NOVOLOG) 1 VIAL SQ SCH ×3 (06:00→22:36)
[2022-03-11 09:38] LABS: EPI CELLS >36 /uL (0-25.1); HYALINE CASTS 23 /uL (0-3.1); URINE APPEARANCE TURBID; URINE BACTERIA 36 /uL (0-1359); URINE BILIRUBIN NEGATIVE (NEGATIVE); URINE COLOR YELLOW; URINE GLUCOSE (UA) 2+ (NEGATIVE); URINE KETONE NEGATIVE (NEGATIVE); URINE LEUK ESTERASE 3+ (NEGATIVE); URINE NITRITE NEGATIVE (NEGATIVE); URINE PROTEIN 3+ (NEGATIVE); URINE UROBILINOGEN 0.2 mg/dL (0.2-1.0); URINE WBC 8187 /uL (0-25.8)
[2022-03-11 10:21] LABS: URINE RBC 352.6 /uL (0-23.9); YEAST NEGATIVE (NEGATIVE)
[2022-03-11 10:23] LABS: HEMATOCRIT 31.2 % (32.4-45.2); HEMOGLOBIN 9.7 GM/dL (10.7-15.3); MCH 33.2 pg (25.7-33.7); MCHC 31.2 g/dl (32.0-36.0); MEAN CELL VOLUME 106.7 fl (80-96); MEAN PLT VOLUME 9.2 fl (7.5-11.1); PLATELET COUNT 220 10^3/uL (134-434); RBC 2.93 M/mm3 (3.60-5.2); RDW 17.4 % (11.6-15.6); WHITE BLOOD COUNT 15.9 K/mm3 (4.0-10.0)
[2022-03-11 10:59] LABS: BLOOD UREA NITROGEN 70.4 mg/dL (7-18); CALCIUM 7.5 mg/dL (8.5-10.1); MAGNESIUM 2.8 mg/dL (1.8-2.4)
[2022-03-11 11:02] LABS: CREATININE 2.3 mg/dL (0.55-1.3); PHOSPHOROUS 2.4 mg/dL (2.5-4.9)
[2022-03-11 11:03] LABS: BILIRUBIN,TOTAL 0.5 mg/dL (0.2-1); TOT PROT 5.4 g/dl (6.4-8.2)
[2022-03-11] MEDS: ASPIRIN 81 MG CHEWABLE TABLETS NGT SCH (11:44)
[2022-03-11] MEDS: amLODIPine BESYLATE 10 MG TABLET (FP) PO SCH (11:44)
[2022-03-11] MEDS: VERAPAMIL HCL 120 MG TABLET NGT SCH ×2 (11:44→23:20)
[2022-03-11] MEDS: LEVOTHYROXINE SODIUM 100 MCG VIAL IVPUSH SCH (11:47)
[2022-03-11] MEDS ORDERED: DEXTROSE 5%-WATER - 1,000 ML IV SCH (13:15)
[2022-03-11] MEDS: FOLIC ACID 1 MG TABLET (FP) NGT SCH (15:11)
[2022-03-11] MEDS: ATORVASTATIN CA 20 MG TABLET (FP) NGT SCH (22:14)
[2022-03-11] MEDS: BANATROL PLUS POWDER PACKET PO SCH (22:14)
[2022-03-11] MEDS: LIDOCAINE PATCH REMOVAL MC SCH (22:20)
[2022-03-12] MEDS: METOPROLOL TARTRATE 5 MG/5 ML VIAL IVPUSH SCH ×6 (01:30→22:23)
[2022-03-12] MEDS: ALPRAZolam 0.25 MG TABLET PO SCH ×3 (06:32→22:21)
[2022-03-12] MEDS: HEPARIN NA (PORCINE) 5,000 UNITS/ML 1ML VIAL SQ SCH ×3 (06:32→22:20)
[2022-03-12] MEDS: BANATROL PLUS POWDER PACKET PO SCH ×3 (06:45→22:21)
[2022-03-12] MEDS: ARTIFICIAL TEARS (POLYVINYL ALCOHOL) OPTH DROPS OU SCH ×3 (06:45→22:27)
[2022-03-12] MEDS: INSULIN SLIDING SCALE (NOVOLOG) 1 VIAL SQ SCH ×4 (06:59→22:24)
[2022-03-12] MEDS: INSULIN (LEVEMIR) 100 UNITS/ML UNITS SQ SCH ×2 (07:01→22:33)
[2022-03-12 09:05] LABS: BASO % 0.4 % (0-2.0); EOS % 1.6 % (0-4.5); HEMATOCRIT 28.3 % (32.4-45.2); HEMOGLOBIN 8.8 GM/dL (10.7-15.3); LYMPH % 7.3 % (8-40); MCHC 30.9 g/dl (32.0-36.0); MEAN CELL VOLUME 106.7 fl (80-96); MEAN PLT VOLUME 9.6 fl (7.5-11.1); MONO % 6.9 % (3.8-10.2); NEUT % 83.8 % (42.8-82.8); PLATELET COUNT 233 10^3/uL (134-434); RBC 2.65 M/mm3 (3.60-5.2); RDW 17.2 % (11.6-15.6); WHITE BLOOD COUNT 12.8 K/mm3 (4.0-10.0)
[2022-03-12 09:18] LABS: CALCIUM 7.3 mg/dL (8.5-10.1)
[2022-03-12 09:19] LABS: ALBUMIN 1.9 g/dl (3.4-5.0); BLOOD UREA NITROGEN 69.8 mg/dL (7-18); MAGNESIUM 2.6 mg/dL (1.8-2.4)
[2022-03-12 09:22] LABS: CREATININE 2.3 mg/dL (0.55-1.3); PHOSPHOROUS 2.4 mg/dL (2.5-4.9)
[2022-03-12 09:24] LABS: BILIRUBIN,TOTAL 0.8 mg/dL (0.2-1); TOT PROT 5.1 g/dl (6.4-8.2)
[2022-03-12 09:49] LABS: ANISOCYTOSIS 2+; MACROCYTOSIS 0
[2022-03-12] MEDS: LIDOCAINE 5% TOPICAL PATCH TP SCH ×2 (09:49→11:10)
[2022-03-12] MEDS: VERAPAMIL HCL 120 MG TABLET NGT SCH ×2 (09:50→22:56)
[2022-03-12] MEDS: LEVOTHYROXINE SODIUM 100 MCG VIAL IVPUSH SCH (09:50)
[2022-03-12] MEDS: ASPIRIN 81 MG CHEWABLE TABLETS NGT SCH (09:51)
[2022-03-12] MEDS: amLODIPine BESYLATE 10 MG TABLET (FP) PO SCH (09:51)
[2022-03-12] MEDS: FOLIC ACID 1 MG TABLET (FP) NGT SCH (09:51)
[2022-03-12] MEDS ORDERED: DEXTROSE 5%-WATER - 1,000 ML IV SCH (11:59)
[2022-03-12] MEDS: ATORVASTATIN CA 20 MG TABLET (FP) NGT SCH (22:21)
[2022-03-12] MEDS: LIDOCAINE PATCH REMOVAL MC SCH (22:34)
[2022-03-13] MEDS: METOPROLOL TARTRATE 5 MG/5 ML VIAL IVPUSH SCH ×6 (01:30→21:41)
[2022-03-13] MEDS: ALPRAZolam 0.25 MG TABLET PO SCH ×3 (06:32→22:39)
[2022-03-13] MEDS: ARTIFICIAL TEARS (POLYVINYL ALCOHOL) OPTH DROPS OU SCH ×3 (06:32→22:40)
[2022-03-13] MEDS: BANATROL PLUS POWDER PACKET PO SCH ×3 (06:32→22:40)
[2022-03-13] MEDS: HEPARIN NA (PORCINE) 5,000 UNITS/ML 1ML VIAL SQ SCH ×3 (06:33→22:39)
[2022-03-13] MEDS: INSULIN (LEVEMIR) 100 UNITS/ML UNITS SQ SCH ×2 (06:38→22:46)
[2022-03-13] MEDS: INSULIN SLIDING SCALE (NOVOLOG) 1 VIAL SQ SCH ×3 (07:00→16:50)
[2022-03-13 08:15] LABS: HEMATOCRIT 30.8 % (32.4-45.2); HEMOGLOBIN 9.7 GM/dL (10.7-15.3); MCH 32.9 pg (25.7-33.7); MCHC 31.4 g/dl (32.0-36.0); MEAN CELL VOLUME 104.8 fl (80-96); MEAN PLT VOLUME 9.4 fl (7.5-11.1); PLATELET COUNT 293 10^3/uL (134-434); RBC 2.94 M/mm3 (3.60-5.2); RDW 17.1 % (11.6-15.6); WHITE BLOOD COUNT 14.8 K/mm3 (4.0-10.0)
[2022-03-13 08:50] LABS: ALBUMIN 1.8 g/dl (3.4-5.0); BLOOD UREA NITROGEN 65.2 mg/dL (7-18); CALCIUM 7.3 mg/dL (8.5-10.1); MAGNESIUM 2.7 mg/dL (1.8-2.4)
[2022-03-13 08:53] LABS: CREATININE 2.2 mg/dL (0.55-1.3); PHOSPHOROUS 2.8 mg/dL (2.5-4.9)
[2022-03-13 08:54] LABS: BILIRUBIN,TOTAL 0.4 mg/dL (0.2-1); TOT PROT 5.3 g/dl (6.4-8.2)
[2022-03-13] MEDS: LEVOTHYROXINE SODIUM 100 MCG VIAL IVPUSH SCH (10:44)
[2022-03-13] MEDS: LIDOCAINE 5% TOPICAL PATCH TP SCH (10:44)
[2022-03-13] MEDS: ASPIRIN 81 MG CHEWABLE TABLETS NGT SCH (10:44)
[2022-03-13] MEDS: FOLIC ACID 1 MG TABLET (FP) NGT SCH (10:44)
[2022-03-13] MEDS: VERAPAMIL HCL 120 MG TABLET NGT SCH ×2 (10:47→23:54)
[2022-03-13] MEDS: POTASSIUM CHLORIDE 10 MEQ in DEXTROSE 5%-WATER - 1,000 ML IV SCH ×2 (11:15→23:00)
[2022-03-13] MEDS: LIDOCAINE PATCH REMOVAL MC SCH (22:00)
[2022-03-13] MEDS: ATORVASTATIN CA 20 MG TABLET (FP) NGT SCH (22:39)
[2022-03-14] MEDS: INSULIN SLIDING SCALE (NOVOLOG) 1 VIAL SQ SCH ×5 (00:25→21:59)
[2022-03-14] MEDS: METOPROLOL TARTRATE 5 MG/5 ML VIAL IVPUSH SCH ×3 (01:30→20:33)
[2022-03-14] MEDS: BANATROL PLUS POWDER PACKET PO SCH ×3 (05:47→21:54)
[2022-03-14] MEDS: HEPARIN NA (PORCINE) 5,000 UNITS/ML 1ML VIAL SQ SCH ×2 (05:47→15:47)
[2022-03-14] MEDS: ALPRAZolam 0.25 MG TABLET PO SCH ×3 (05:47→21:55)
[2022-03-14] MEDS: ARTIFICIAL TEARS (POLYVINYL ALCOHOL) OPTH DROPS OU SCH ×3 (05:50→21:54)
[2022-03-14] MEDS: INSULIN (LEVEMIR) 100 UNITS/ML UNITS SQ SCH ×2 (06:02→22:00)
[2022-03-14] MEDS ORDERED: SODIUM CHLORIDE 0.45% 1,000 ML IV SCH (07:00)
[2022-03-14 07:37] LABS: HEMATOCRIT 27.9 % (32.4-45.2); MCHC 32.3 g/dl (32.0-36.0); MEAN CELL VOLUME 105.4 fl (80-96); MEAN PLT VOLUME 9.4 fl (7.5-11.1); PLATELET COUNT 281 10^3/uL (134-434); RBC 2.65 M/mm3 (3.60-5.2); RDW 17.2 % (11.6-15.6)
[2022-03-14] MEDS: VERAPAMIL HCL 120 MG TABLET NGT SCH ×2 (10:20→23:00)
[2022-03-14] MEDS: FOLIC ACID 1 MG TABLET (FP) NGT SCH (10:20)
[2022-03-14] MEDS: ASPIRIN 81 MG CHEWABLE TABLETS NGT SCH (10:20)
[2022-03-14] MEDS: LEVOTHYROXINE SODIUM 100 MCG VIAL IVPUSH SCH (10:21)
[2022-03-14] MEDS: LIDOCAINE 5% TOPICAL PATCH TP SCH (10:25)
[2022-03-14 11:40] LABS: ALBUMIN 1.7 g/dl (3.4-5.0); BILIRUBIN,TOTAL 0.4 mg/dL (0.2-1); CALCIUM 7.3 mg/dL (8.5-10.1); CREATININE 2.1 mg/dL (0.55-1.3)
[2022-03-14 19:09] LABS: HEMATOCRIT 29.1 % (32.4-45.2); HEMOGLOBIN 9.2 GM/dL (10.7-15.3); MCH 33.8 pg (25.7-33.7); MCHC 31.7 g/dl (32.0-36.0); MEAN CELL VOLUME 106.9 fl (80-96); MEAN PLT VOLUME 9.2 fl (7.5-11.1); PLATELET COUNT 286 10^3/uL (134-434); RBC 2.72 M/mm3 (3.60-5.2); RDW 17.1 % (11.6-15.6)
[2022-03-14] MEDS: POTASSIUM CHLORIDE 10 MEQ in DEXTROSE 5%-WATER - 1,000 ML IV SCH ×2 (20:32→21:24)
[2022-03-14] MEDS: ATORVASTATIN CA 20 MG TABLET (FP) NGT SCH (21:54)
[2022-03-14] MEDS: ZINC OXIDE 20% TOPICAL OINTMENT 30 GM TUBE TP SCH (21:55)
[2022-03-14] MEDS: PANTOPRAZOLE SODIUM 40 MG VIAL IVPUSH SCH (22:46)
[2022-03-14] MEDS: LIDOCAINE PATCH REMOVAL MC SCH (22:47)
[2022-03-15] MEDS: POTASSIUM CHLORIDE 10 MEQ in DEXTROSE 5%-WATER - 1,000 ML IV SCH (04:15)
[2022-03-15] MEDS: INSULIN SLIDING SCALE (NOVOLOG) 1 VIAL SQ SCH ×5 (06:44→22:18)
[2022-03-15] MEDS: ARTIFICIAL TEARS (POLYVINYL ALCOHOL) OPTH DROPS OU SCH ×3 (06:45→21:06)
[2022-03-15] MEDS: ALPRAZolam 0.25 MG TABLET PO SCH ×3 (06:46→21:06)
[2022-03-15] MEDS: INSULIN (LEVEMIR) 100 UNITS/ML UNITS SQ SCH ×2 (06:46→22:18)
[2022-03-15] MEDS: BANATROL PLUS POWDER PACKET PO SCH ×3 (06:46→21:07)
[2022-03-15 08:28] LABS: HEMATOCRIT 26.1 % (32.4-45.2); HEMOGLOBIN 8.5 GM/dL (10.7-15.3); MCH 34.2 pg (25.7-33.7); MCHC 32.5 g/dl (32.0-36.0); MEAN CELL VOLUME 105.3 fl (80-96); MEAN PLT VOLUME 8.3 fl (7.5-11.1); PLATELET COUNT 281 10^3/uL (134-434); RBC 2.48 M/mm3 (3.60-5.2); RDW 16.8 % (11.6-15.6); WHITE BLOOD COUNT 10.2 K/mm3 (4.0-10.0)
[2022-03-15 08:46] LABS: CHLORIDE 107 mmol/L (98-107); SODIUM 137 mmol/L (136-145)
[2022-03-15 08:57] LABS: ALBUMIN 1.6 g/dl (3.4-5.0); ANION GAP 9 MMOL/L (8-16); BLOOD UREA NITROGEN 51.1 mg/dL (7-18); CO2 20 mmol/L (21-32); GLUCOSE,RANDOM 270 mg/dL (74-106); MAGNESIUM 2.3 mg/dL (1.8-2.4)
[2022-03-15 09:00] LABS: CREATININE 2.1 mg/dL (0.55-1.3); PHOSPHOROUS 2.4 mg/dL (2.5-4.9); SGOT/AST 62 U/L (15-37); SGPT/ALT 40 U/L (13-61)
[2022-03-15 09:03] LABS: ALK PHOS 97 U/L (45-117); BILIRUBIN,TOTAL 0.4 mg/dL (0.2-1)
[2022-03-15 09:23] LABS: CALCIUM 6.9 mg/dL (8.5-10.1)
[2022-03-15] MEDS: PANTOPRAZOLE SODIUM 40 MG VIAL IVPUSH SCH ×2 (10:14→21:07)
[2022-03-15] MEDS: FOLIC ACID 1 MG TABLET (FP) NGT SCH (10:14)
[2022-03-15] MEDS: ASPIRIN 81 MG CHEWABLE TABLETS NGT SCH (10:14)
[2022-03-15] MEDS: LEVOTHYROXINE SODIUM 100 MCG VIAL IVPUSH SCH (10:14)
[2022-03-15] MEDS: LIDOCAINE 5% TOPICAL PATCH TP SCH (10:14)
[2022-03-15] MEDS: VERAPAMIL HCL 120 MG TABLET NGT SCH ×2 (10:15→21:50)
[2022-03-15] MEDS: ZINC OXIDE 20% TOPICAL OINTMENT 30 GM TUBE TP SCH ×2 (10:15→21:07)
[2022-03-15] MEDS ORDERED: SCOPOLAMINE HYDROBROMIDE 1 PATCH PATCH.TD72 TD SCH (14:30)
[2022-03-15] MEDS ORDERED: LORazepam 2 MG/ML SDV VIAL IVPUSH SCH (19:00)
[2022-03-15] MEDS: ATORVASTATIN CA 20 MG TABLET (FP) NGT SCH (21:06)
[2022-03-15] MEDS: LIDOCAINE PATCH REMOVAL MC SCH (21:07)
[2022-03-16] MEDS: INSULIN (LEVEMIR) 100 UNITS/ML UNITS SQ SCH ×2 (06:04→21:26)
[2022-03-16] MEDS: BANATROL PLUS POWDER PACKET PO SCH ×3 (06:04→21:25)
[2022-03-16] MEDS: ARTIFICIAL TEARS (POLYVINYL ALCOHOL) OPTH DROPS OU SCH ×3 (06:04→21:25)
[2022-03-16] MEDS: ALPRAZolam 0.25 MG TABLET PO SCH ×3 (06:04→21:27)
[2022-03-16] MEDS: INSULIN SLIDING SCALE (NOVOLOG) 1 VIAL SQ SCH ×4 (06:05→21:28)
[2022-03-16 07:02] LABS: HEMOGLOBIN 8.9 GM/dL (10.7-15.3); MCH 33.5 pg (25.7-33.7); MEAN CELL VOLUME 104.8 fl (80-96); MEAN PLT VOLUME 9.6 fl (7.5-11.1); PLATELET COUNT 311 10^3/uL (134-434); RBC 2.67 M/mm3 (3.60-5.2); RDW 17.1 % (11.6-15.6); WHITE BLOOD COUNT 14.9 K/mm3 (4.0-10.0)
[2022-03-16 07:41] LABS: ALBUMIN 1.8 g/dl (3.4-5.0); BLOOD UREA NITROGEN 53.7 mg/dL (7-18); MAGNESIUM 2.4 mg/dL (1.8-2.4); PHOSPHOROUS 2.8 mg/dL (2.5-4.9)
[2022-03-16 07:42] LABS: BILIRUBIN,TOTAL 0.3 mg/dL (0.2-1); TOT PROT 5.3 g/dl (6.4-8.2)
[2022-03-16 07:44] LABS: CREATININE 2.3 mg/dL (0.55-1.3)
[2022-03-16] MEDS: LIDOCAINE 5% TOPICAL PATCH TP SCH (11:09)
[2022-03-16] MEDS: FOLIC ACID 1 MG TABLET (FP) NGT SCH (11:10)
[2022-03-16] MEDS: VERAPAMIL HCL 120 MG TABLET NGT SCH ×2 (11:10→21:27)
[2022-03-16] MEDS: LEVOTHYROXINE SODIUM 100 MCG VIAL IVPUSH SCH (11:10)
[2022-03-16] MEDS: ASPIRIN 81 MG CHEWABLE TABLETS NGT SCH (11:10)
[2022-03-16] MEDS: PANTOPRAZOLE SODIUM 40 MG VIAL IVPUSH SCH ×2 (11:14→21:27)
[2022-03-16] MEDS: ZINC OXIDE 20% TOPICAL OINTMENT 30 GM TUBE TP SCH ×2 (12:25→21:27)
[2022-03-16] MEDS: ATORVASTATIN CA 20 MG TABLET (FP) NGT SCH (21:27)
[2022-03-16] MEDS: LIDOCAINE PATCH REMOVAL MC SCH (22:39)
[2022-03-17] MEDS: BANATROL PLUS POWDER PACKET PO SCH (06:28)
[2022-03-17] MEDS: ALPRAZolam 0.25 MG TABLET PO SCH ×2 (06:28→14:00)
[2022-03-17] MEDS: ARTIFICIAL TEARS (POLYVINYL ALCOHOL) OPTH DROPS OU SCH ×2 (06:28→14:00)
[2022-03-17] MEDS: INSULIN (LEVEMIR) 100 UNITS/ML UNITS SQ SCH (06:31)
[2022-03-17] MEDS: INSULIN SLIDING SCALE (NOVOLOG) 1 VIAL SQ SCH ×2 (06:32→12:39)
[2022-03-17 08:15] LABS: BASO % 0.3 % (0-2.0); EOS % 0.1 % (0-4.5); HEMOGLOBIN 7.9 GM/dL (10.7-15.3); LYMPH % 3.4 % (8-40); MCH 33.6 pg (25.7-33.7); MCHC 31.8 g/dl (32.0-36.0); MEAN CELL VOLUME 105.8 fl (80-96); MEAN PLT VOLUME 9.2 fl (7.5-11.1); MONO % 5.6 % (3.8-10.2); NEUT % 90.6 % (42.8-82.8); PLATELET COUNT 382 10^3/uL (134-434); RBC 2.36 M/mm3 (3.60-5.2); RDW 17.2 % (11.6-15.6); WHITE BLOOD COUNT 12.5 K/mm3 (4.0-10.0)
[2022-03-17 08:24] LABS: CHLORIDE 102 mmol/L (98-107); SODIUM 133 mmol/L (136-145)
[2022-03-17 08:27] LABS: ALBUMIN 1.7 g/dl (3.4-5.0); BLOOD UREA NITROGEN 59.2 mg/dL (7-18); CO2 19 mmol/L (21-32)
[2022-03-17 08:28] LABS: GLUCOSE,RANDOM 326 mg/dL (74-106); MAGNESIUM 2.4 mg/dL (1.8-2.4)
[2022-03-17 08:30] LABS: PHOSPHOROUS 6.2 mg/dL (2.5-4.9); SGPT/ALT 36 U/L (13-61)
[2022-03-17 08:31] LABS: SGOT/AST 60 U/L (15-37)
[2022-03-17 08:32] LABS: BILIRUBIN,TOTAL 0.4 mg/dL (0.2-1); TOT PROT 5.3 g/dl (6.4-8.2)
[2022-03-17 08:33] LABS: ALK PHOS 91 U/L (45-117)
[2022-03-17 08:40] LABS: ANION GAP 12 MMOL/L (8-16)
[2022-03-17 09:36] LABS: ANISOCYTOSIS 1+; MACROCYTOSIS 1+
[2022-03-17] MEDS: LEVOTHYROXINE SODIUM 100 MCG VIAL IVPUSH SCH (09:51)
[2022-03-17] MEDS: PANTOPRAZOLE SODIUM 40 MG VIAL IVPUSH SCH (09:51)
[2022-03-17] MEDS: VERAPAMIL HCL 120 MG TABLET NGT SCH ×2 (09:51→23:42)
[2022-03-17] MEDS: FOLIC ACID 1 MG TABLET (FP) NGT SCH (09:51)
[2022-03-17] MEDS: LIDOCAINE 5% TOPICAL PATCH TP SCH (09:52)
[2022-03-17] MEDS: ZINC OXIDE 20% TOPICAL OINTMENT 30 GM TUBE TP SCH (09:52)
[2022-03-17] MEDS: ASPIRIN 81 MG CHEWABLE TABLETS NGT SCH (09:52)
[2022-03-17 11:21] LABS: HEMATOCRIT 25.1 % (32.4-45.2); MCH 33.6 pg (25.7-33.7); MCHC 31.7 g/dl (32.0-36.0); MEAN PLT VOLUME 8.8 fl (7.5-11.1); PLATELET COUNT 386 10^3/uL (134-434); RBC 2.37 M/mm3 (3.60-5.2); RDW 17.1 % (11.6-15.6); WHITE BLOOD COUNT 13.4 K/mm3 (4.0-10.0)
[2022-03-17 11:37] LABS: CHLORIDE 104 mmol/L (98-107); SODIUM 134 mmol/L (136-145)
[2022-03-17 11:39] LABS: ALBUMIN 1.7 g/dl (3.4-5.0); CO2 19 mmol/L (21-32); GLUCOSE,RANDOM 271 mg/dL (74-106)
[2022-03-17 11:40] LABS: BLOOD UREA NITROGEN 61.1 mg/dL (7-18)
[2022-03-17 11:42] LABS: SGPT/ALT 36 U/L (13-61)
[2022-03-17 11:43] LABS: CREATININE 3.2 mg/dL (0.55-1.3); SGOT/AST 70 U/L (15-37)
[2022-03-17 11:44] LABS: BILIRUBIN,TOTAL 0.3 mg/dL (0.2-1); TOT PROT 5.5 g/dl (6.4-8.2)
[2022-03-17 11:45] LABS: ALK PHOS 93 U/L (45-117)
[2022-03-17 11:50] LABS: ANION GAP 11 MMOL/L (8-16)
[2022-03-17] MEDS ORDERED: CALCIUM CHLORIDE 10% 1 GM/10 ML *VIAL IVPUSH ONE (13:31)
[2022-03-17] MEDS ORDERED: DEXTROSE 50%-WATER 25 GM/50 ML DISP.SYRIN IVPUSH ONE (14:30)
[2022-03-17] MEDS ORDERED: INSULIN REGULAR HUMAN 100 UNITS/ML *VIAL IVPUSH ONE (14:30)
[2022-03-17] MEDS ORDERED: ALPRAZolam 1 MG TABLET PO ONE (14:30)
[2022-03-17] MEDS ORDERED: INSULIN SLIDING SCALE (NOVOLOG) 1 VIAL SQ SCH (14:45)
[2022-03-17] MEDS ORDERED: SODIUM ZIRCONIUM CYCLOSILICATE (LOKELMA) 5 GM PACKET NGT SCH (14:51)
[2022-03-17] MEDS ORDERED: SODIUM CHLORIDE 1,000 ML IV SCH (15:00)
[2022-03-17 15:46] VITALS: PULSE 103; TEMP 97.8
[2022-03-17 15:49] VITALS: RESP 24
[2022-03-17] MEDS ORDERED: DEXTROSE 50%-WATER 25 GM/50 ML DISP.SYRIN ONE (18:51)
[2022-03-17] MEDS ORDERED: CALCIUM GLUCONATE IN NACL 1 GM/50 ML BAG IVPB ONE (20:30)
[2022-03-17 22:34] VITALS: BP 98/50
[2022-03-17] MEDS: LIDOCAINE PATCH REMOVAL MC SCH (23:41)
== END 2022-03-18 03:00 | disposition expired | DRG 871 ==
LOC: JER 14:14 → JERBED 17:30 → JICU 20:30 → J8W 03-03 01:09 → JICU 03-03 14:28 → J4W 03-08 17:43
PROVIDERS: ADMIT Internal Medicine; ATTEND Internal Medicine
PROC: 0DH67UZ Insertion of Feeding Device into Stomach, Via Natural or Artificial Opening (ICD-10-PCS; principal; 2022-03-07)
DX: A41.89 Other specified sepsis (principal); E11.10 Type 2 diabetes mellitus with ketoacidosis without coma; G93.41 Metabolic encephalopathy; J18.9 Pneumonia, unspecified organism; I63.9 Cerebral infarction, unspecified; E43 Unspecified severe protein-calorie malnutrition; J96.00 Acute respiratory failure, unspecified whether with hypoxia or hypercapnia; N17.9 Acute kidney failure, unspecified; J90 Pleural effusion, not elsewhere classified; E87.1 Hypo-osmolality and hyponatremia; I24.8 Other forms of acute ischemic heart disease; N39.0 Urinary tract infection, site not specified; G81.91 Hemiplegia, unspecified affecting right dominant side; E87.0 Hyperosmolality and hypernatremia; N18.9 Chronic kidney disease, unspecified; R45.1 Restlessness and agitation; E11.65 Type 2 diabetes mellitus with hyperglycemia; Z68.20 Body mass index [BMI] 20.0-20.9, adult; I25.10 Atherosclerotic heart disease of native coronary artery without angina pectoris; E03.9 Hypothyroidism, unspecified; I16.0 Hypertensive urgency; Z98.61 Coronary angioplasty status; R62.7 Adult failure to thrive; D72.829 Elevated white blood cell count, unspecified
CPT/HCPCS: 36415; 36600; 70450-TC; 71045-TC-FY; 74176-TC; 76705-TC; 80048; 80053; 81003; 82010; 82272; 82803; 82962; 83605; 83735; 83880; 84100; 84439; 84443; 84481; 84484; 85025; 85027; 85610; 85730; 86850; 86900; 86901; 87040; 87077; 87086; 93005; 93010; 93306-TC; 94640; 94660; 97162-GP; 99291; C9803-CS; J1644; U0003; U0005